=== PATIENT | male | born 1960 | race Caucasian/White ===

== ENCOUNTER 2020-08-12 08:37 | Observation (INO) ==
--- NOTE | 2020-07-14 14:03 | PAT Medication Instructions ---
Medication Instructions Date of Service July 14, 2020 Home Medications acetaminophen [Tylenol Extra Strength] 1,000 mg PO Q6H PRN aspirin 650 mg PO QID 1 ibuprofen 200 - 400 mg PO Q6H PRN omeprazole 20 mg PO QAM pseudoephedrine HCl [Sudafed] 30 mg PO HS ASK your surgeon for instructions aspirin 650 mg PO QID ibuprofen 200 - 400 mg PO Q6H PRN Take morning of surgery With a small sip of water, OTHERWISE NOTHING TO EAT OR DRINK AFTER MIDNIGHT: acetaminophen [Tylenol Extra Strength] 1,000 mg PO Q6H PRN (okay to take up to 4 hours prior to surgery if needed) omeprazole 20 mg PO QAM Take evening before surgery acetaminophen [Tylenol Extra Strength] 1,000 mg PO Q6H PRN (if needed) pseudoephedrine HCl [Sudafed] 30 mg PO HS Other Notes If you have any questions please call us at [phone] or [phone] or [phone] or [phone]
--- NOTE | 2020-07-18 08:18 | Anesthesiology Consultation ---
Date of Service July 18, 2020 Assessment & Plan (1) Encounter for pre-operative examination: Chart Review Chart Review: Acceptable Risk for Surgery (pending preop Covid testing ) and Patient seen in Pre Admission Testing Per PAT appt on 07/18/20, pt resides in [facility]. Wears mask, uses good hand hygiene and socially distances. Educated patient to follow up with surgeon's office regarding Covid testing. Educated on importance of self quarantining, social distancing and wearing mask in public both for the patient and household contacts. Teaching & Discussion Pre-Anesthesia Teaching/Discussion Notes: Instructed NPO after midnight before surgery,except medications with 15 cc of water. Medication instructions provided according to the PAT guidelines. History Surgery Operation Date: 08/12/20 08:50 Proposed Procedures p Left Total Hip Arthroplasty - Rocky Ordonez MD Height/Weight Height: 6 ft 3 in Weight: 108.3 kg Allergies Allergy/AdvReac Type Severity Reaction Status Date / Time No Known Allergies Allergy Verified 07/13/20 13:22 Medications Home Medications Medication Instructions Recorded Confirmed Last Taken acetaminophen [Tylenol Extra 1,000 mg PO Q6H PRN 07/13/20 07/13/20 Unknown Strength] aspirin 650 mg PO QID 07/13/20 07/13/20 Unknown ibuprofen 200 - 400 mg PO Q6H PRN 07/13/20 07/13/20 Unknown omeprazole 20 mg PO QAM 07/13/20 07/13/20 Unknown pseudoephedrine HCl [Sudafed] 30 mg PO HS 07/13/20 07/13/20 Unknown Past Medical History Medical History Arthritis GERD (gastroesophageal reflux disease) Well controlled and stable with meds Irregular heart beat HX-HEARD BY PCP - SINUS ARRHYTHMIA PER EKG- PT ASYMPTOMATIC Exercise / Class Metabolic Activity II 4-5 Yardwork/Stairs/Walk up hill (ONE FLIGHT OF STAIRS - NO CHEST PAIN OR SOB ) Past Surgical History Surgical History Difficult airway for intubation 08/1996 [facility] [place] WITH BACK SURGERY-WOKE UP DURING INTUBATION-TROUBLE GETTING TUBE IN-SURGERY WAS DONE AFTER NEXT ATTEMPT-NO ISSUES AFTER THAT WITH SUBSEQUENT 4TH BACK SX AT [facility] AND [place] 2011 AT [facility] History of appendectomy History of back surgery X 4-LUMBAR FUSIONS History of open reduction and internal fixation (ORIF) procedure RIGHT ARM History of repair of rotator cuff LEFT History of tonsillectomy History of tooth extraction History of total right hip arthroplasty Lipoma of abdominal wall REMOVAL OF Past Anesthesia History No Hx of Anesthesia Complications (WITH EXCEPTION TO ONE EPISODE OF DIFFICULT INTUBATION - PT WOKE UP INTUBATION TUBE WAS BEING PUT IN- NO ISSUES PRIOR OR AFTER WITH INTUBATION PER PT - NO ANESTHESIA RECORDS AVAILABLE ) and No Family Hx of Anesthesia Complications History of PONV No Hx of PONV and No Hx of Motion Sickness Social History Smoking Status: Never smoker Do You Dip or Chew Tobacco: No Hx Alcohol Use: No Hx Substance Use: No Review of Systems Occ snoring - no witnessed apnea. No sleep study Patient denies chest pain, shortness of breath, dyspnea on exertion, cough, wheezing, palpitations. No hx of seizures, stroke, [place]. No hx of blood clots or blood transfusions Physical Exam Vital Signs VITALS BP 114/69 P 58 TEMP 97.6 SP02 97% RESP 16 Constitutional no acute distress ENMT Mouth: no TMJ clicking Thyromental Distance: > or= 3.5 Finger Breadths (3.5) Mallampati Class: II Top and bottom partial dentures Neck + limited neck extension (signfiicant ) Respiratory normal respiratory effort; no respiratory distress Auscultation: lungs clear to auscultation bilaterally; no wheezes Cardiovascular Rate/Rhythm: regular rate and regular rhythm Heart Sounds: no murmur Vessels: no carotid bruit Musculoskeletal Spine: no pain with cervical ROM Extremities: extremities normal to inspection Psychiatric Orientation: alert Testing Laboratory Results 07/18/20 08:54 07/18/20 08:54 PT 10.7 Seconds (9.0-12.0) 07/18/20 08:54 INR 1.0 (0.9-1.1) 07/18/20 08:54 APTT 27.5 Seconds (21.0-31.0) 07/18/20 08:54 Blood Type B Positive 07/18/20 08:54 Antibody Screen NEGATIVE 07/18/20 08:54 Electrocardiogram Date: 05/02/20 (EKG dated 09/27/19 but patient actually had EKG ordered and signed by cardio 05/02/20) SR with occ PVCs at 68 bpm. Otherwise normal EKG. Chest X-Ray Date: 07/18/20 Findings: + NAD 7 mm nodular density projecting over the lateral left lung base may reflect a calcified granuloma. (Will send CXR to PCP as FYI to follow as outpatient)
--- NOTE | 2020-07-18 09:34 | XRay Report ---
XR chest Pre-admission PA/Lat HISTORY: 60 years-old Male pat preoperative exam. No acute chest complaints COMPARISON: Chest radiographs 07/20/2011 TECHNIQUE: PA and lateral views of the chest FINDINGS: Cardiomediastinal and hilar silhouettes are within normal limits. No pneumothorax, pleural effusion, airspace consolidation or overt pulmonary edema. 7 mm nodular density projecting over the lateral lef t lung base may reflect a calcified granuloma. Degenerative changes of the shoulders and spine. IMPRESSION: No acute process. ACT 112: Negative or not required by law. The above report was generated using voice recognition software. It may contain grammatical, syntax o r spelling errors. Electronically signed by: Satnam Carrington M.D. 07/18/2020 9:33 AM
[2020-07-18 11:08] LABS: Basophils # (auto) 0.01 K/uL (0-0.2); Basophils % (auto) 0.2 %; Eosinophils # (auto) 0.16 K/uL (0-0.5); Eosinophils % (auto) 3.1 %; Hematocrit (blood only) 40.9 % (42-52); Hemoglobin 13.3 g/dL (14.0-18.0); Immature Granulocytes # (auto) 0.01 K/uL (0.00-0.02); Immature Granulocytes % (auto) 0.2 %; Lymphocytes # (auto) 1.78 K/uL (1.2-3.4); Lymphocytes % (auto) 34.6 %; Mean Corpuscular Hemoglobin 29.4 pg (25-34); Mean Corpuscular Hgb Conc 32.5 g/dL (32-36); Mean Corpuscular Volume 90.3 fL (80-100); Mean Platelet Volume 9.3 fL (7.4-10.4); Monocytes # (auto) 0.27 K/uL (0.11-0.59); Monocytes % (auto) 5.3 %; Neutrophils # (auto) 2.91 K/uL (1.4-6.5); Neutrophils % (auto) 56.6 %; Platelet Count 255 K/uL (130-400); RDW Coefficient of Variation 13.3 % (11.5-14.5); RDW Standard Deviation 43.6 fL (36.4-46.3); Red Blood Count 4.53 M/uL (4.7-6.1); White Blood Count 5.14 K/uL (4.8-10.8)
[2020-07-18 11:16] LABS: BUN Creatinine Ratio 13.3 (10-20); Blood Urea Nitrogen 13 mg/dl (7-18); Calcium 9.5 mg/dl (8.5-10.1); Carbon Dioxide 28 mmol/L (21-32); Chloride 107 mmol/L (98-107); Creatinine Clr Calc Pharmacy 112.5 ml/min; Est GFR (African American) 102.4; Est GFR (Non-African American) 88.4; Glucose 102 mg/dl (70-99); Potassium 4.2 mmol/L (3.5-5.1); Sodium 138 mmol/L (136-145)
[2020-07-18 11:17] LABS: C Reactive Protein < 0.29 mg/dl (0-0.29)
[2020-07-18 11:23] LABS: Partial Thromboplastin Time 27.5 Seconds (21.0-31.0); Prothrombin Time 10.7 Seconds (9.0-12.0)
--- NOTE | 2020-08-05 09:15 | History and Physical Report ---
DATE OF ADMISSION: 08/12/2020 CHIEF COMPLAINT: Left hip pain and discomfort. HISTORY OF PRESENT ILLNESS: A 60-year-old gentleman well known to me from a previous right hip replacement done 9 years ago. He did pretty well from this side, but had some thigh pain for a while. He did go to [facility] and they did a workup and all was negative. The thigh pain did go away. Over the past year, he has developed increased pain and discomfort in his left hip. He described groin pain, thigh pain. He has difficulty walking any significant distances. He does limp all the time, but more as the day goes on. He has been through extensive conservative treatment, particularly oral medicines which have not helped much. He would like to have his left hip fixed. PAST MEDICAL HISTORY: Significant for: 1. Multiple back operations. 2. Gastroesophageal reflux disease. PAST SURGICAL HISTORY: Include: 1. Low back operation x4, last one in 2000. 2. Right hip replacement done 08/17/2011. 3. A lymph node dissection in 05/2020. ALLERGIES: None. CURRENT MEDICINES: 1. Aspirin once a day. 2. Tylenol 6 a day. 3. Ibuprofen 6 a day. SOCIAL HISTORY: A 60-year-old male. He is from [place]. He is . Does not smoke. No significant alcohol intake. FAMILY HISTORY: Noncontributory. REVIEW OF HISTORY: Negative for diabetes, neurologic problem, vascular problems or bleeding disorders. Denies any chest pain or shortness of breath. No history of DVT or PE. No known bleeding problems. PHYSICAL EXAMINATION GENERAL: Shows a pleasant, middle-aged male, looks to be in pretty good health. HEENT: Benign. NECK: Supple, no lymphadenopathy. LUNGS: Clear to auscultation. HEART: Has a regular rate and rhythm. ABDOMEN: Soft, nontender, nondistended. EXTREMITIES: Grossly neurovascularly intact except as follows. Examination of left hip and leg reveals the patient walks with markedly antalgic gait. He is about 0.5 cm short on the left side. He has difficulty walking on his own. He has marked pain with any type of hip motion of the hip. Hip is very stiff. He cannot rotate even to neutral. Negative straight leg raise. No knee effusion. X-RAYS: X-ray of left hip were reviewed. It shows advanced left hip DJD. He has got extensive arthritis and cystic changes and osteophytes on both sides of the joint. He has got complete loss of the superior joint space. He does have evidence of the previous extensive back surgery with L4 to the sacrum fusion as well as his right hip replacement looks to be in good position. ASSESSMENT: A 60-year-old gentleman 9 years out from right hip replacement and history of multiple back operations with advanced left hip degenerative joint disease. He is pretty miserable with this. He has failed all conservative treatment and would like to have his left hip replaced. PLAN: We will take him to the operating room and do a left total hip replacement. The risks and benefits of this procedure were explained to the patient including but not limited to DVT, PE, , infection, neurological injury, vascular injury, bleeding problem, pain, limited range of motion, stiffness, failure to relieve symptoms, incomplete relief of symptoms, need for further surgery in future, fracture, leg length inequality, nerve palsy, and dislocation. With his extensive back surgery, he is at increased risk for dislocation and we are going to try and antevert his cup a little bit more than usual. We will probably maximize his head size. He did have thigh pain after his last operation. It did go away and he made struggle to some degree with this side as well, but I anticipate he will have a similar outcome. As far as discharge, he is planning to be discharged to home. He is going to have any home health. He does have a , but apparently she has got some alcohol issues, but he is able to manage this.
[~2020-08-12 08:37] MED LIST: ACETAMINOPHEN 500 MG TAB PO SCH; BUPIVACAINE 0.5 % 5 MG/1 ML PF 10ML VIAL ONE; FAMOTIDINE 20 MG TAB PO SCH; GABAPENTIN 600 MG DOSE PO SCH; LR 500ML BOLUS, THEN 15ML/HR IV SCH; LR 60ML/HR IV SCH; METOCLOPRAMIDE HCL 10 MG TABLET PO SCH; TRANEXAMIC ACID / 0.7% NACL 1,000 MG/100 ML BAG IV SCH; ceFAZolin 2000MG 2,000 MG/15 ML SYR IV SCH
[2020-08-12] MEDS ORDERED: MIDAZOLAM HCL 1 MG/ML 2ML VIAL ONE (08:55)
[2020-08-12] MEDS ORDERED: MoRPHine SULFATE PF 1 MG/ML 10 ML AMP/VIAL ONE (08:56)
--- NOTE | 2020-08-12 10:04 | History & Physical Bridge Note ---
Date of Service August 12, 2020 History & Physical Bridge Note I have examined the patient, reviewed the History & Physical and in the interval since the performance of the History & Physical I have noted the following changes of clinical significance: no changes noted
[2020-08-12] MEDS ORDERED: BUPIVACAINE/EPINEPHRINE 0.5% MPF 1:200,000 30 ML VIAL ONE (10:08)
[2020-08-12] MEDS ORDERED: BACITRACIN INJ 50,000 UNIT VIAL ONE (10:08)
[2020-08-12] MEDS ORDERED: fentaNYL citrate 100 MCG/2 ML VIAL ONE (10:14)
[2020-08-12] MEDS ORDERED: PROPOFOL IV EMULSION 10 MG/ML 20 ML VIAL IV ONE (10:40)
[2020-08-12] MEDS ORDERED: ePHEDrine sulfate 50 MG/ML AMP ONE (10:44)
[2020-08-12] MEDS ORDERED: PROMETHAZINE HCL 25 MG in SODIUM CHLORIDE 0.9% 50 ML IV PRN (11:39)
[2020-08-12] MEDS ORDERED: LACTATED RINGER'S 500 ML IV PRN (11:39)
[2020-08-12] MEDS ORDERED: MoRPHine SULFATE PF 1 MG/ML 10 ML AMP/VIAL INT SPINAL ONE (11:39)
[2020-08-12] MEDS ORDERED: ePHEDrine sulfate 50 MG/ML AMP IV PRN (11:39)
[2020-08-12] MEDS ORDERED: NALOXONE HCL 0.08 MG in SYRINGE 1.8 ML IV PRN (11:39)
[2020-08-12] MEDS ORDERED: ONDANSETRON INJ 2 MG/ML 2 ML VIAL IV PRN (11:39)
[2020-08-12] MEDS ORDERED: NALOXONE HCL 0.4 MG/1 ML VIAL/CARP IV PRN ×2 (11:39→13:48)
[2020-08-12] MEDS ORDERED: NALOXONE HCL 1 MG in SODIUM CHLORIDE 0.9% 1000ML 1,000 ML IV PRN (11:39)
[2020-08-12] MEDS ORDERED: diphenhydrAMINE 50 MG/ML VIAL IV PRN (11:39)
[2020-08-12] MEDS ORDERED: NO NARCOTICS OR SEDATIVES SCH (11:45)
[2020-08-12] MEDS ORDERED: SODIUM CHLORIDE 0.9% 1000ML 1,000 ML IV SCH (11:45)
--- NOTE | 2020-08-12 12:01 | Post Operative Brief Note ---
PG Immediate Post Op with CF Date of Surgery August 12, 2020 Pre & Post Diagnosis Operation Date: 08/12/20 10:40 Pre-Op Diagnosis: Left Hip Advanced Degenerative Joint Disease Post-Op Diagnosis: Left Hip Advanced Degenerative Joint Disease I identified the patient and participated in the time-out.: Yes Procedure Operation Date: 08/12/20 10:40 Actual Procedures p Left Total Hip Arthroplasty--Uncemented(Left) - Rocky Ordonez MD Surgeon Rocky Ordonez MD Traffic Control Flagger MARTIR Galeano Estimated Blood Loss 200 Findings Consistent with Post-Op Diagnosis Fluids 800 cc. Specimens Specimen Description: A. Left Femoral Head Drains Heard Catheter Anesthesia Type Spinal MAC Complications none Disposition Accompanied Patient To Recovery: Yes Disposition: Recovery Room
--- NOTE | 2020-08-12 12:12 | Operative Report ---
Post Operative Report Pre & Post Diagnosis Operation Date: 08/12/20 10:40 Pre-Op Diagnosis: Left Hip Advanced Degenerative Joint Disease Post-Op Diagnosis: Left Hip Advanced Degenerative Joint Disease I identified the patient and participated in the time-out.: Yes Procedure Operation Date: 08/12/20 10:40 Actual Procedures p Left Total Hip Arthroplasty--Uncemented(Left) - Rocky Ordonez MD Surgeon Rocky Ordonez MD Arch Cushion Press Operator MARTIR Galeano Estimated Blood Loss 200 Findings Consistent with Post-Op Diagnosis Operative findings revealed advanced left hip DJD. He had extensive grade 4 [id number] disease of the femoral head and acetabulum. He had a pretty large medial osteophyte as well as an anterior acetabular osteophyte.. Flattening was femoral head. Moderate-sized joint effusion. Fluids 800 cc. Specimens Left femoral head sent for pathology. Drains None. Anesthesia Type Spinal MAC Complications none Disposition Accompanied Patient To Recovery: Yes Disposition: Recovery Room Indications Patient is a 60-year-old gentleman who is now about 9 years out from right hip replacement. Over the past year to 2 years he developed increased pain discomfort in his left hip. Got markedly more debilitating over the past 6 months to the point where he is having trouble walking at all. He limps severely. They failed all conservative care. He elected proceed with left total hip arthroplasty. Description of Procedure Operative implants consist of: 1. Biomet G7 size 56 mm acetabular shell. 2. [place] hole whiskey filterer. 3. 6.5 cancellous acetabular screws 135 mm length 1 of 30 mm length. 4. Highly cross-linked polyethylene liner with a 56 mm outer diameter, 36 mm inner diameter with a plummer placed inferior and posterior. 5. Gage Jerryaya size 14 KLA femoral stem. 6. +8.5/36 mm ceramic articular ball. The patient was taken to the operating identified and placed on the operating table supine position but all contact areas were properly padded. IV antibiotics tried by anesthesia team. A spinal anesthetic had been implemented holding area. Heard catheter was placed in sterile fashion with the patient then placed in the right lateral decubitus position. An axillary roll was placed. A Stulberg hip positioner was used for positioning. The left hip and leg were then prepped and draped in usual sterile fashion. A posterior lateral approach to the left hip was then performed through a curvilinear incision centered over the greater trochanter. Sharp dissection got through subcutaneous this down over the IT band gluteal fascia the IT band gluteal fascia incised longitudinally in line with skin incision. The underlying greater bursa was excised. The piriformis and external rotators were tagged and taken off the posterior aspect hip joint capsule. Great care was taken throughout the procedure protect the sciatic nerve at all times. Posterior capsulotomy was then performed leaving a large flap for later repair. Hip was internally rotated and dislocated. Femoral neck osteotomy was then made with Final Cut about 12 mm above the lesser trochanter. Femoral head was removed and sent for pathology. The femur was retracted anteriorly. Attention drawn the acetabulum. The acetabular labrum was excised per the pulmonary fat was excised. Sequential reaming the acetabular was then performed beginning with a size 47 progressing up to a 55. I did reamed a little bit with a 56 reamer and then placed a 56 cup. This is placed in about 40 degrees lateral opening and 20 to 25 degrees of anteversion. I did place a little more anteversion into his cup due to his spinal fusion and stiffness in his back and increased risk for instability. A anterior osteophyte was removed. A trial liner was placed. Attention then drawn towards the femur. The proximal femur was entered with a cookie-cutter followed by canal finder. Then broached begin the size 8 and progressing up to 14. Got excellent fit of 14. Used a calcar reamer to smooth off the calcar. I then trialed the hip. The hip was stable but the laxity was a bit excessive with a +5 head so I elected to place a +8.5 head. I also placed a lip on the liner in order to maximize his stability in flexion due to his history of multiple spine surgeries and fusion. We elect to place these implants. All trial implants were removed. An apex hole eliminator was placed. Highly cross-linked polyethylene liner with a plummer placed inferior and posterior was placed. A DePuy size 14 KLA femoral stem was impacted in position. +8.5/36 mm ceramic articular ball was placed. Hip was located once again found to be stable. Attention drawn toward closing. Wounds irrigated scope soft pulsatile lavage solution. I did inject locally with 60 cc of absent Marcaine with epinephrine. The posterior capsule and external rotators were then repaired through drill holes in the posterior trochanter with #2 Tycron suture. The IT band gluteal fascia then closed #1 PDS suture running fashion for subcutaneous tissue then closed 2 layers with a deep layer #1 Vicryl suture and subcutaneous tissues with 2 Dexon suture in a buried interrupted fashion the skin was closed skin conner. Legs then cleaned dried a sterile dressed with Xeroform, 4 x 4's, ABD pad and foam tape was applied. Patient then transferred to the recovery room in stable condition. Patient tolerated procedure well and there were no complications. Nirmal Galeano, my physician assistant front office manager, was present for the entire procedure. His assistance was essential and required for appropriate patient positioning, prepping and draping, surgical exposure, performing the technical details of the operation, placement the implants, closure of the wound, and placement of the sterile bandage. I attest to the content of the Intraoperative Record and any orders documented therein. Any exceptions are noted below.
--- NOTE | 2020-08-12 12:46 | Anesthesiology Progress Note ---
Date of Service August 12, 2020 Anesthesia Post Procedure Vital Signs Vital Signs: Temp Pulse Pulse Resp BP Pulse Ox 08/12/20 12:40 72 20 143/80 H 98 08/12/20 12:30 77 20 132/77 99 08/12/20 12:20 78 20 146/68 H 100 08/12/20 12:10 77 20 137/57 L 100 08/12/20 12:00 76 18 125/61 100 08/12/20 11:58 36.5 C 77 18 120/60 100 08/12/20 09:40 37 C 69 20 131/74 96 08/12/20 09:00 36.8 C 60 20 131/74 97 Transfer of Care Handoff Completed per policy Notes Mental Status: alert / awake / arousable Patient Amnestic to Procedure: Yes Nausea / Vomiting: adequately controlled Pain: adequately controlled Airway Patency, RR, SpO2: stable & adequate BP & HR: stable & adequate Hydration State: stable & adequate Neuraxial Anesthesia: was administered and sensory block is resolving Anesthetic Complications: no major complications apparent
--- NOTE | 2020-08-12 12:50 | XRay Report ---
SINGLE VIEW PELVIS; TWO VIEWS LEFT HIP CLINICAL HISTORY: Postoperative examination. FINDINGS: An AP portable view of the hips and pelvis with AP and crosstable lateral portable views of the left hip are obtained. A bipolar left hip arthroplasty is in near-anatomic alignment. At least 2 cortical lag screws transfix the acetabular cup. No acute fracture is identified. There are expected postoperative changes overlying the left hip including skin clips, subcutaneous gas, and soft tissue swelling. A right hip arthroplasty is also in place. Lumbar spinal fusion hardware is partially imag ed. IMPRESSION: Expected postoperative findings status post left hip arthroplasty. No acute fracture is s een. ACT 112: Negative or not required by law. Electronically signed by: Jignesh Singh M.D. 08/12/2020 12:49 PM
[2020-08-12] MEDS ORDERED: TAMSULOSIN HCL 0.4 MG CAP PO PRN (13:48)
[2020-08-12] MEDS ORDERED: METOCLOPRAMIDE HCL INJ 5 MG/ML 2 ML VIAL IV PRN (13:48)
[2020-08-12] MEDS ORDERED: MAGNESIUM HYDROXIDE SUSP 30 ML UDC PO PRN (13:48)
[2020-08-12] MEDS ORDERED: bisacodyL 10 MG SUPP PR PRN (13:48)
[2020-08-12] MEDS ORDERED: ALUMINUM/MAGNESIUM SUSP 30 ML UDC PO PRN (13:48)
[2020-08-12] MEDS: SODIUM CHLORIDE 0.9% 1000ML 1,000 ML IV SCH ×2 (14:14→20:05)
[2020-08-12] MEDS: Scopolamine CHECK PATCH PLACEMENT SCH (15:40)
[2020-08-12] MEDS: KETOROLAC 30 MG/ML VIAL IV SCH ×2 (15:40→19:58)
[2020-08-12] MEDS: FERROUS GLUCONATE 324 MG TAB PO SCH (18:02)
[2020-08-12] MEDS: ASCORBIC ACID 500 MG TAB PO SCH (18:03)
[2020-08-12] MEDS: ACETAMINOPHEN 500 MG TAB PO SCH (18:03)
[2020-08-12] MEDS ORDERED: TRANEXAMIC ACID / 0.7% NACL 1,000 MG/100 ML BAG IV SCH (18:04)
[2020-08-12] MEDS: ceFAZolin 2000MG 2,000 MG/15 ML SYR IV SCH (18:06)
[2020-08-12] MEDS: DOCUSATE SODIUM 100 MG CAP PO SCH (19:58)
[2020-08-12] MEDS: ASPIRIN 81 MG ECTAB PO SCH (19:58)
[2020-08-12] MEDS ORDERED: PSEUDOEPHEDRINE HCL 30 MG TAB PO SCH (21:00)
[2020-08-12] MEDS ORDERED: SENNA 8.6 MG TAB PO SCH (21:00)
[2020-08-13] MEDS: Scopolamine CHECK PATCH PLACEMENT SCH ×2 (01:44→08:00)
[2020-08-13] MEDS: ceFAZolin 2000MG 2,000 MG/15 ML SYR IV SCH (01:44)
[2020-08-13] MEDS: KETOROLAC 30 MG/ML VIAL IV SCH ×2 (01:45→09:00)
[2020-08-13] MEDS: SODIUM CHLORIDE 0.9% 1000ML 1,000 ML IV SCH (01:51)
[2020-08-13] MEDS: ACETAMINOPHEN 500 MG TAB PO SCH (03:47)
[2020-08-13 03:55] LABS: Basophils # (auto) 0.01 K/uL (0-0.2); Basophils % (auto) 0.1 %; Eosinophils # (auto) 0.09 K/uL (0-0.5); Eosinophils % (auto) 1.1 %; Hematocrit (blood only) 32.6 % (42-52); Hemoglobin 10.5 g/dL (14.0-18.0); Immature Granulocytes # (auto) 0.02 K/uL (0.00-0.02); Immature Granulocytes % (auto) 0.3 %; Lymphocytes # (auto) 1.49 K/uL (1.2-3.4); Lymphocytes % (auto) 18.7 %; Mean Corpuscular Hemoglobin 29.4 pg (25-34); Mean Corpuscular Hgb Conc 32.2 g/dL (32-36); Mean Corpuscular Volume 91.3 fL (80-100); Mean Platelet Volume 8.8 fL (7.4-10.4); Monocytes % (auto) 7.5 %; Neutrophils # (auto) 5.77 K/uL (1.4-6.5); Neutrophils % (auto) 72.3 %; Platelet Count 178 K/uL (130-400); RDW Coefficient of Variation 13.5 % (11.5-14.5); RDW Standard Deviation 45.4 fL (36.4-46.3); Red Blood Count 3.57 M/uL (4.7-6.1); White Blood Count 7.98 K/uL (4.8-10.8)
[2020-08-13 04:16] LABS: BUN Creatinine Ratio 14.9 (10-20); Calcium 7.7 mg/dl (8.5-10.1); Creatinine Clr Calc Pharmacy 104.3 ml/min; Est GFR (African American) 96.2; Potassium 3.5 mmol/L (3.5-5.1)
[2020-08-13] MEDS ORDERED: DC INTRASPINAL MORPHINE ONE (05:39)
[2020-08-13] MEDS ORDERED: ONDANSETRON INJ 2 MG/ML 2 ML VIAL IV PRN (05:40)
[2020-08-13] MEDS ORDERED: HYDROmorphone INJ 0.5 MG/0.5 ML SYR IV PRN (05:40)
[2020-08-13] MEDS ORDERED: traMADol HCL 50 MG TABLET PO PRN (05:40)
[2020-08-13] MEDS ORDERED: diphenhydrAMINE Capsule 25 MG CAP PO PRN (05:40)
[2020-08-13] MEDS: ASCORBIC ACID 500 MG TAB PO SCH (08:00)
[2020-08-13] MEDS: FERROUS GLUCONATE 324 MG TAB PO SCH (08:00)
[2020-08-13] MEDS ORDERED: MULTIVITAMIN TAB PO SCH (09:00)
[2020-08-13] MEDS: ASPIRIN 81 MG ECTAB PO SCH (09:00)
[2020-08-13] MEDS: DOCUSATE SODIUM 100 MG CAP PO SCH (09:00)
[2020-08-13] MEDS ORDERED: PANTOprazole 40 MG TAB PO SCH (09:00)
--- NOTE | 2020-08-13 13:40 | Progress Notes ---
DATE: 08/13/2020 SUBJECTIVE: A 60-year-old gentleman now postop day 1 from a left hip replacement. He is doing quite well. Pain is much improved from what it was coming into the hospital. He did get up and walk some yesterday. Denies any chest pain or shortness of breath. Not feeling dizzy or lightheaded. OBJECTIVE GENERAL: Shows a pleasant, middle-aged male. He is lying in bed this morning and I had to wake him. LUNGS: Clear to auscultation. HEART: Regular rate and rhythm. ABDOMEN: Soft, nontender, nondistended. EXTREMITIES: Grossly neurovascularly intact except as follows. Examination of the left hip and leg reveals the leg lengths to be equal. Dressing is clean, dry, and intact. He can dorsiflex and plantarflex his foot appropriately. He is neurologically intact. Leg lengths are equal. ASSESSMENT: A 60-year-old gentleman postop day 1 from a left hip replacement, doing quite well. Pain is controlled. He is neurologically intact. Hip is located. PLAN: 1. DVT prophylaxis including thigh-high TEDs, SCDs, and aspirin twice a day. 2. PT/OT. Weight bear as tolerated. Left total hip protocol. 3. Pain control, doing well with current pain regimen. 4. Disposition. He is hoping to be discharged to home later today. He does not want home health.
--- NOTE | 2020-08-16 09:47 | Discharge Summary ---
Date of Service August 16, 2020 Admission HPI Per Admitting Provider Documented in the H & P Admission Exam (Per Admitting) Constitutional Documented in the H & P Discharge Data Consultations 08/13/20 08:00 Consult Case Management - Discharge Planning Routine Procedures Performed Operation Date: 08/12/20 10:40 Actual Procedures p Left Total Hip Arthroplasty--Uncemented(Left) - oRcky Ordonez MD Hospital Course (1) Status post total hip replacement, left: This patient is a 60 year old male admitted on 08/12/20 and underwent total hip arthroplasty. He tolerated the procedure well and there were no complications. Transferred to the PACU post op and later to the orthopedic floor for further care. He was given ancef for antibiotic prophylaxis. He was also given RE stockings, SCDs, and aspirin for DVT prophylaxis. Hemoglobin, hematocrit, and vital signs were monitored during his hospital stay and remained stable. Did not require any blood transfusions. There were no complications during his hospital stay. By post op day #1 the patient was tolerating a regular diet, pain was reasonably controlled with oral pain medicine, and he was participating in physical therapy. On post op day #1 the patient was discharged home. He was given printed discharge instructions including prescriptions for extra strength tylenol, aspirin, and tramadol. Continue physical therapy, weight bearing as tolerated. Continue RE stockings. Continue total hip precautions. Follow up approximately 2 weeks post op or sooner if there are problems or concerns. Coding Level of Care Code None Diagnoses Status post total hip replacement, left Z96.642
== END 2020-08-13 12:09 | disposition home or self-care (01) ==
LOC: 3E 08:37 → ASU 08:37